=== PATIENT | female | born 1955 | race Caucasian/White ===

== ENCOUNTER 2022-10-23 13:44 | Emergency (ER) | payer MEDICARE, MEDICAID ==
[2022-10-23 14:13] VITALS: BP_SYST 107
[2022-10-23 17:30] VITALS: BP_SYST 110
== END 2022-10-23 17:30 | disposition home or self-care (01) ==
LOC: SED 13:44
DX: S82.62XA Displaced fracture of lateral malleolus of left fibula, initial encounter for closed fracture (principal); Z88.5 Allergy status to narcotic agent; Z79.899 Other long term (current) drug therapy; V86.96XA Unspecified occupant of dirt bike or motor/cross bike injured in nontraffic accident, initial encounter; Y93.89 Activity, other specified; Y92.89 Other specified places as the place of occurrence of the external cause; Y99.8 Other external cause status
CPT/HCPCS: 99283

== ENCOUNTER 2024-07-06 09:32 | Emergency (ER) | payer MEDICARE, MEDICAID ==
[~2024-07-06] VITALS: Ht 162.6 cm; Wt 59.0 kg
[2024-07-06 09:47] VITALS: BP_SYST 102; PULSE 89; RESP 20; TEMP 98.3; O2SAT 98
[2024-07-06] MEDS: KETOROLAC TROMETHAMINE 60 MG/2 ML VIAL IM ONE (10:00)
[2024-07-06] MEDS ORDERED: IBUP-1969 PO (11:02)
[2024-07-06] MEDS ORDERED: HYDR-3917 PO (11:02)
[2024-07-06 11:10] VITALS: BP_SYST 102; PULSE 89; RESP 20; TEMP 98.3; O2SAT 98
== END 2024-07-06 11:09 | disposition home or self-care (01) ==
LOC: SED 09:32
DX: S92.355A Nondisplaced fracture of fifth metatarsal bone, left foot, initial encounter for closed fracture (principal); E11.9 Type 2 diabetes mellitus without complications; I10 Essential (primary) hypertension; Z91.041 Radiographic dye allergy status; Z88.8 Allergy status to other drugs, medicaments and biological substances; W22.8XXA Striking against or struck by other objects, initial encounter; Y93.89 Activity, other specified; Y92.89 Other specified places as the place of occurrence of the external cause; Y99.8 Other external cause status
CPT/HCPCS: 99284; 73610; 73620; 96372; J1885